=== PATIENT | female | born 1990 | race American Indian/Alaskan Native ===

== ENCOUNTER 2020-12-21 08:00 | Outpatient (CLI) | payer OTHER | END 2020-12-21 08:30 | disposition home or self-care (01) | LOC: PPH VACUNA 08:00 | PROVIDERS: ATTEND Emergency Medicine Pediatric Emergency Medicine | DX: Z23 Encounter for immunization (principal) ==

== ENCOUNTER 2021-01-28 08:00 | Outpatient (CLI) | payer OTHER | END 2021-01-28 08:30 | disposition home or self-care (01) | LOC: PPH VACUNA 08:00 | PROVIDERS: ATTEND Emergency Medicine Pediatric Emergency Medicine | DX: Z23 Encounter for immunization (principal) ==

== ENCOUNTER 2021-11-30 09:05 | Outpatient (CLI) | payer OTHER | END 2021-11-30 09:10 | disposition home or self-care (01) | LOC: PPH VACUNA 09:05 | PROVIDERS: ATTEND Emergency Medicine Pediatric Emergency Medicine | DX: Z23 Encounter for immunization (principal) ==

== ENCOUNTER → 2022-06-02 07:23 | Outpatient (CLI) | payer OTHER | END | disposition home or self-care (01) | LOC: LAB 07:23 | PROVIDERS: ATTEND Specialist | DX: Z34.93 Encounter for supervision of normal pregnancy, unspecified, third trimester (principal) ==

== ENCOUNTER → 2022-06-12 11:46 | Outpatient (CLI) | payer OTHER | END | disposition home or self-care (01) | LOC: LAB 11:46 | PROVIDERS: ATTEND Specialist | DX: Z34.93 Encounter for supervision of normal pregnancy, unspecified, third trimester (principal) ==

== ENCOUNTER 2022-07-10 05:06 | Inpatient (IN) | payer OTHER ==
[~2022-07-10] VITALS: Ht 152.4 cm; Wt 2.7 kg
[2022-07-10] MEDS ORDERED: PRENATAL TABLE1 EAC1 PO (05:43)
[2022-07-10] MEDS ORDERED: ECOTRIN81 MG PO (05:44)
[2022-07-10] MEDS ORDERED: SURFAK240 M1 PO (17:42)
[2022-07-10] MEDS ORDERED: IBU800 MG PO (17:42)
[2022-07-10] MEDS ORDERED: PERCOCET 5-3251 EACH PO (17:42)
== END 2022-07-13 14:18 | disposition home or self-care (01) | DRG 788 ==
LOC: LDR 05:06 → O/R 18:42 → OB/GYN 19:37
PROVIDERS: ADMIT Specialist; ATTEND Specialist
PROC: 4A1HXCZ Monitoring of Products of Conception, Cardiac Rate, External Approach (ICD-10-PCS; 2022-07-10)
PROC: 10D00Z1 Extraction of Products of Conception, Low, Open Approach (ICD-10-PCS; principal; 2022-07-10 18:00)
DX: O82 Encounter for cesarean delivery without indication (principal); O62.1 Secondary uterine inertia; Z3A.39 39 weeks gestation of pregnancy; Z37.0 Single live birth; Z20.822 Contact with and (suspected) exposure to COVID-19

== ENCOUNTER 2022-09-21 10:14 | Outpatient (CLI) | payer OTHER ==
[~2022-09-21 10:14] MED LIST: ECOTRIN81 MG PO; IBU800 MG PO; PERCOCET 5-3251 EACH PO; PRENATAL TABLE1 EAC1 PO; SURFAK240 M1 PO
== END 2022-09-21 10:32 | disposition home or self-care (01) ==
LOC: SONOGRAMA 10:14
PROVIDERS: ATTEND Specialist
DX: N64.4 Mastodynia (principal)

== ENCOUNTER → 2022-11-16 | Outpatient (CLI) | payer OTHER | END | disposition home or self-care (01) | LOC: PPH VACUNA | PROVIDERS: ATTEND Emergency Medicine Pediatric Emergency Medicine | DX: Z23 Encounter for immunization (principal) ==

== ENCOUNTER 2023-12-21 12:00 | Outpatient (CLI) | payer OTHER | END 2023-12-21 12:15 | disposition home or self-care (01) | LOC: PPH VACUNA 12:00 | PROVIDERS: ATTEND Emergency Medicine Pediatric Emergency Medicine | DX: Z23 Encounter for immunization (principal) ==

== ENCOUNTER 2024-04-06 19:03 | Emergency (ER) | payer OTHER ==
[~2024-04-06] VITALS: Ht 152.4 cm; Wt 45.4 kg
[2024-04-06 21:23] LABS: HEMATOCRIT 38.3 % (36.0-45.00); MEAN CELL VOLUME 89.3 fL (80.00-100.00); MEAN CORPUSCULAR HEMOGLOBIN 30.4 pg (27.00-32.0); PLATELET COUNT 330 K/uL (150-450); RED BLOOD COUNT 4.29 M/uL (4.00-6.00); RED CELL DISTRIBUTION WIDTH 12.5 % (11.5-14.5)
[2024-04-06 21:32] LABS: CALCIUM 9.8 mg/dL (8.5-10.1); CREATININE SERUM 0.72 mg/dL (0.55-1.02); GFR 93.87; POTASSIUM 3.9 mEq/L (3.5-5.1)
[2024-04-06] MEDS ORDERED: levoFLOXacin IN DEXTROSE 5 % 5 MG/ML PIGGYBAG IV STA (21:55)
[2024-04-06] MEDS ORDERED: LEVALBUTEROL HCL 1.25 MG/3 ML SOLUTION IH STA (21:57)
[2024-04-06] MEDS ORDERED: METHYLPREDNISOLONE SOD SUCC 125 MG VIAL IV STA (21:57)
[2024-04-06] MEDS ORDERED: IPRATROPIUM BROMIDE 0.5 MG/2.5 ML AMPUL.NEB IH SCH (22:00)
[2024-04-06] MEDS ORDERED: METHYLPREDNISOLONE SOD SUCC 125 MG VIAL ONE (22:05)
[2024-04-06] MEDS ORDERED: IPRATROPIUM BROMIDE 0.5 MG/2.5 ML AMPUL.NEB IH ONE (23:36)
[2024-04-06] MEDS ORDERED: LEVALBUTEROL HCL 1.25 MG/3 ML SOLUTION IH ONE (23:36)
== END 2024-04-07 00:03 | disposition home or self-care (01) ==
LOC: ER 19:06
PROVIDERS: General Practice
DX: R05.8 Other specified cough (principal)